=== PATIENT | female | born 1955 | race Two or more races ===

== ENCOUNTER 2018-09-24 08:35 | Outpatient (CLI) | payer OTHER | END 2018-09-24 08:36 | disposition home or self-care (01) | LOC: SONOGRAMA 08:35 → MAMO-SONO 09:15 | DX: K76.0 Fatty (change of) liver, not elsewhere classified (principal) ==

== ENCOUNTER 2020-02-20 09:03 | Outpatient (CLI) | payer OTHER | END 2020-02-20 09:05 | disposition home or self-care (01) | LOC: SONOGRAMA 09:03 → MAMO-SONO 09:15 | PROVIDERS: ATTEND General Practice | DX: E04.2 Nontoxic multinodular goiter (principal) ==

== ENCOUNTER 2020-02-27 07:49 | Outpatient (CLI) | payer OTHER | END 2020-02-27 07:58 | disposition home or self-care (01) | LOC: NUCLEAR 07:49 | PROVIDERS: ATTEND Internal Medicine Cardiovascular Disease | DX: I10 Essential (primary) hypertension (principal); R07.89 Other chest pain ==

== ENCOUNTER 2020-08-13 09:17 | Outpatient (CLI) | payer OTHER | END 2020-08-13 09:20 | disposition home or self-care (01) | LOC: RAD 09:17 | PROVIDERS: ATTEND Ophthalmology | DX: R07.89 Other chest pain (principal) ==

== ENCOUNTER → 2022-09-10 | Outpatient (CLI) | payer OTHER | END | disposition home or self-care (01) | LOC: NUCLEAR 08:21 | DX: I87.2 Venous insufficiency (chronic) (peripheral) (principal); I70.213 Atherosclerosis of native arteries of extremities with intermittent claudication, bilateral legs ==

== ENCOUNTER 2022-09-11 08:40 | Outpatient (CLI) | payer OTHER | END 2022-09-11 08:41 | disposition home or self-care (01) | LOC: NUCLEAR 08:40 | DX: I87.2 Venous insufficiency (chronic) (peripheral) (principal); I70.213 Atherosclerosis of native arteries of extremities with intermittent claudication, bilateral legs ==

== ENCOUNTER 2022-09-22 07:05 | Outpatient (CLI) | payer OTHER | END 2022-09-22 07:10 | disposition home or self-care (01) | LOC: RAD 07:05 | PROVIDERS: ATTEND Internal Medicine Cardiovascular Disease | DX: R10.9 Unspecified abdominal pain (principal) ==

== ENCOUNTER 2022-12-21 07:57 | Outpatient (CLI) | payer OTHER | END 2022-12-21 08:06 | disposition home or self-care (01) | LOC: SONOGRAMA 07:57 | PROVIDERS: ATTEND Internal Medicine Endocrinology, Diabetes & Metabolism | DX: E04.2 Nontoxic multinodular goiter (principal) ==

== ENCOUNTER 2024-01-20 07:29 | Outpatient (CLI) | payer OTHER | END 2024-01-20 07:33 | disposition home or self-care (01) | LOC: SONOGRAMA 07:29 | PROVIDERS: ATTEND Internal Medicine Cardiovascular Disease | DX: M12.9 Arthropathy, unspecified (principal) ==

== ENCOUNTER 2024-01-27 07:29 | Outpatient (CLI) | payer OTHER | END 2024-01-27 07:31 | disposition home or self-care (01) | LOC: SONOGRAMA 07:29 | PROVIDERS: ATTEND Pathology Anatomic Pathology | DX: D34 Benign neoplasm of thyroid gland (principal); E07.89 Other specified disorders of thyroid; E04.1 Nontoxic single thyroid nodule ==

== ENCOUNTER 2024-08-01 07:21 | Outpatient (CLI) | payer OTHER | END 2024-08-01 07:22 | disposition home or self-care (01) | LOC: NUCLEAR 07:21 | PROVIDERS: ATTEND Internal Medicine Cardiovascular Disease | DX: I87.2 Venous insufficiency (chronic) (peripheral) (principal) ==

== ENCOUNTER 2024-08-04 08:47 | Outpatient (CLI) | payer OTHER | END 2024-08-04 08:49 | disposition home or self-care (01) | LOC: SONOGRAMA 08:47 | DX: M77.42 Metatarsalgia, left foot (principal) ==

== ENCOUNTER 2025-02-20 08:53 | Outpatient (CLI) | payer OTHER | END 2025-02-20 08:54 | disposition home or self-care (01) | LOC: NUCLEAR 08:53 | PROVIDERS: ATTEND Internal Medicine Endocrinology, Diabetes & Metabolism | DX: M81.0 Age-related osteoporosis without current pathological fracture (principal) ==

== ENCOUNTER 2025-03-07 09:36 | Outpatient (CLI) | payer OTHER | END 2025-03-07 09:47 | disposition home or self-care (01) | LOC: RAD 09:36 | PROVIDERS: ATTEND Pulmonary Function Technologist | DX: J45.909 Unspecified asthma, uncomplicated (principal); J45.901 Unspecified asthma with (acute) exacerbation ==

== ENCOUNTER 2025-04-03 12:37 | Outpatient (CLI) | payer OTHER | END 2025-04-03 12:44 | disposition home or self-care (01) | LOC: RAD 12:37 | PROVIDERS: ATTEND Internal Medicine Cardiovascular Disease | DX: M12.9 Arthropathy, unspecified (principal) ==

== ENCOUNTER 2025-04-05 07:15 | Outpatient (CLI) | payer OTHER | END 2025-04-05 07:19 | disposition home or self-care (01) | LOC: MAMO-SONO 07:15 | PROVIDERS: ATTEND Internal Medicine Cardiovascular Disease | DX: N60.11 Diffuse cystic mastopathy of right breast (principal); N60.12 Diffuse cystic mastopathy of left breast; Z12.31 Encounter for screening mammogram for malignant neoplasm of breast ==